=== PATIENT | female | born 2000 | race Caucasian/White ===

== ENCOUNTER 2021-11-06 16:45 | Emergency (ER) | payer OTHER, SELFPAY ==
[2021-11-06 16:52] VITALS: BP 109/75; BP 126/69; PULSE 80; PULSE 92; RESP 16; TEMP 36.8; O2SAT 99; BMI 23.1
--- NOTE | 2021-11-06 17:17 | ED_ITS ---
HPI - Syncope General Chief Complaint: Syncope Stated Complaint: SYNCOPAL EPISODE Time Seen by Provider: 11/06/21 17:16 Related Data Allergies Allergy/AdvReac Type Severity Reaction Status Date / Time No Known Allergies Allergy Unverified 12/01/19 19:48 [facility] Past Medical History Medical History (Updated 11/06/21 @ 17:36 by Ricardo Batista MD) Anemia Social History Social History Smoked in Last 30 Days: No Substance Use Type: Marijuana Physical Exam Vital Signs: Vital Signs: Last Vital Signs Temp 98.3 F 11/06/21 16:52 Pulse 80 11/06/21 16:52 Resp 16 11/06/21 16:52 BP 126/69 11/06/21 16:52 Pulse Ox 99 11/06/21 16:52 O2 Del Method 11/06/21 16:52 BMI result Body Mass Index 23.1 Course Reevaluation(s) Reevaluation #1: Patient eloped from the ER without evaluation or seen by the provider Time: 17:35 Discharge Plan Discharge Clinical Impression: Vasovagal syncope Patient Disposition: Elopement Interventions: ED Discharge Assessment Last Done: 11/06/21 17:30
== END 2021-11-06 17:40 | disposition left against medical advice (07) ==
LOC: HO.ED 17:37
PROVIDERS: Emergency Provider Internal Medicine
DX: R55 Syncope and collapse (principal)
CPT/HCPCS: 99283